=== PATIENT | male | born 1935 | race Hispanic/Latino ===

== ENCOUNTER 2020-10-04 18:33 | Observation (INO) | payer MEDICARE, OTHER ==
[~2020-10-04] VITALS: Ht 165.1 cm; Wt 59.0 kg
[~2020-10-04 18:33] MED LIST: CEFADROXIL500 MG PO; PLAVIX75 MG PO; TYLENOL WITH C1 EACH PO
[2020-10-04 19:08] LABS: BASOPHILS # (AUTO) 0.1 (0.0-0.1); BASOPHILS % 1.1 % (0.0-1.0); EOSINOPHILS # (AUTO) 0.3 (0.0-0.4); EOSINOPHILS % 3.3 % (0.0-6.0); HEMATOCRIT 38.1 % (38.2-49.6); HEMOGLOBIN 12.1 g/dL (14.0-18.0); LYMPHOCYTES # (AUTO) 1.7 (1.0-3.2); LYMPHOCYTES % 23.3 % (18.0-39.1); MEAN CORPUSCULAR HEMOGLOBIN 25.6 pg (28-32); MEAN CORPUSCULAR HGB CONC 31.8 g/dL (31-35); MEAN CORPUSCULAR VOLUME 80.7 fL (81-99); MONOCYTES # (AUTO) 0.7 (0.2-0.8); MONOCYTES % 9.6 % (4.4-11.3); NEUTROPHILS # (AUTO) 4.7 (2.1-6.9); NEUTROPHILS % 62.4 % (38.7-80.0); PLATELET COUNT 225 x10e3/uL (140-360); RED BLOOD COUNT 4.72 x10e6/uL (4.3-5.7); RED CELL DISTRIBUTION WIDTH 14.6 % (11.7-14.4)
[2020-10-04 19:21] LABS: INR 0.9; PROTHROMBIN TIME 12.7 seconds (11.9-14.5)
[2020-10-04 19:24] LABS: ALBUMIN 3.7 g/dL (3.5-5.0); ALBUMIN/GLOBULIN RATIO 1.1 (0.8-2.0); ANION GAP 14.5 mmol/L (8-16); CALCIUM 8.9 mg/dL (8.4-10.2); CREATININE, SERUM 1.56 mg/dL (0.72-1.25); POTASSIUM 3.5 mmol/L (3.5-5.1)
[2020-10-04 19:30] LABS: CREATINE KINASE MB 1.2 ng/mL (0-5.0)
[2020-10-04] MEDS ORDERED: METOPROLOL TARTRATE INJ 1 MG/ML VIAL IV ONE (20:30)
[2020-10-04] MEDS ORDERED: METOPROLOL TARTRATE INJ 1 MG/ML VIAL ONE (20:44)
[2020-10-04] MEDS ORDERED: HYDRALAZINE HCL 20 MG/ML VIAL IV PRN (21:00)
[2020-10-04] MEDS ORDERED: SODIUM CHLORIDE FLUSH 10 ML SYR INJ PRN (21:00)
[2020-10-04 23:00] VITALS: BP 193/77
[2020-10-05] VITALS (9 sets, daily range): BP systolic 133–160; BP diastolic 58–86
[2020-10-05 05:27] LABS: BASOPHILS # (AUTO) 0.1 (0.0-0.1); BASOPHILS % 0.8 % (0.0-1.0); EOSINOPHILS # (AUTO) 0.3 (0.0-0.4); EOSINOPHILS % 3.6 % (0.0-6.0); HEMATOCRIT 37.2 % (38.2-49.6); HEMOGLOBIN 12.2 g/dL (14.0-18.0); LYMPHOCYTES # (AUTO) 1.6 (1.0-3.2); LYMPHOCYTES % 19.4 % (18.0-39.1); MEAN CORPUSCULAR HGB CONC 32.8 g/dL (31-35); MEAN CORPUSCULAR VOLUME 79.3 fL (81-99); MONOCYTES # (AUTO) 0.8 (0.2-0.8); MONOCYTES % 9.6 % (4.4-11.3); NEUTROPHILS # (AUTO) 5.5 (2.1-6.9); NEUTROPHILS % 66.4 % (38.7-80.0); PLATELET COUNT 216 x10e3/uL (140-360); RED BLOOD COUNT 4.69 x10e6/uL (4.3-5.7); RED CELL DISTRIBUTION WIDTH 14.6 % (11.7-14.4)
[2020-10-05 05:54] LABS: CREATINE KINASE MB 1.4 ng/mL (0-5.0)
[2020-10-05 06:32] LABS: ALBUMIN 3.5 g/dL (3.5-5.0); ALBUMIN/GLOBULIN RATIO 1.2 (0.8-2.0); ANION GAP 12.3 mmol/L (8-16); CALCIUM 8.6 mg/dL (8.4-10.2); CREATININE, SERUM 1.26 mg/dL (0.72-1.25); POTASSIUM 3.3 mmol/L (3.5-5.1)
[2020-10-05] MEDS ORDERED: ACETAMINOPHEN 325 MG TAB PO PRN (06:45)
[2020-10-05] MEDS ORDERED: ONDANSETRON HCL INJ 2MG/ML 2ML 2 MG/ML VIAL IV PRN (06:45)
[2020-10-05] MEDS ORDERED: DOCUSATE SODIUM 100 MG CAP PO PRN (06:45)
[2020-10-05] MEDS ORDERED: ZOLPIDEM TARTRATE 5 MG TAB PO PRN (06:45)
[2020-10-05 07:12] LABS: CHOL/HDL RATIO 3.4 (3.9-4.7)
[2020-10-05] MEDS: CLOPIDOGREL BISULFATE 75 MG TAB PO SCH (09:45)
[2020-10-05] MEDS: ASPIRIN 81 MG ENTERIC COATED PO SCH (09:45)
[2020-10-05 12:22] LABS: CREATINE KINASE MB 1.5 ng/mL (0-5.0)
[2020-10-05] MEDS ORDERED: ENOXAPARIN SOD INJ 40 MG/0.4 ML SYR SC SCH (17:00)
[2020-10-05] MEDS ORDERED: ATORVASTATIN 20 MG TAB PO SCH (21:00)
[2020-10-05] MEDS: METOPROLOL TARTRATE 25 MG TAB PO SCH (21:18)
[2020-10-06] MEDS: METOPROLOL TARTRATE 25 MG TAB PO SCH (05:30)
[2020-10-06 05:33] VITALS: BP 137/67
[2020-10-06 05:56] LABS: BASOPHILS # (AUTO) 0.1 (0.0-0.1); BASOPHILS % 1.1 % (0.0-1.0); EOSINOPHILS # (AUTO) 0.3 (0.0-0.4); EOSINOPHILS % 3.6 % (0.0-6.0); HEMATOCRIT 37.2 % (38.2-49.6); LYMPHOCYTES # (AUTO) 1.6 (1.0-3.2); LYMPHOCYTES % 19.7 % (18.0-39.1); MEAN CORPUSCULAR HEMOGLOBIN 25.9 pg (28-32); MEAN CORPUSCULAR HGB CONC 32.3 g/dL (31-35); MEAN CORPUSCULAR VOLUME 80.2 fL (81-99); MONOCYTES # (AUTO) 0.9 (0.2-0.8); MONOCYTES % 10.5 % (4.4-11.3); NEUTROPHILS # (AUTO) 5.3 (2.1-6.9); PLATELET COUNT 176 x10e3/uL (140-360); RED BLOOD COUNT 4.64 x10e6/uL (4.3-5.7); RED CELL DISTRIBUTION WIDTH 14.8 % (11.7-14.4)
[2020-10-06 06:23] LABS: ANION GAP 15.2 mmol/L (8-16); CREATININE, SERUM 1.47 mg/dL (0.72-1.25); POTASSIUM 4.2 mmol/L (3.5-5.1)
[2020-10-06 08:13] VITALS: BP 165/59
[2020-10-06] MEDS: ASPIRIN 81 MG ENTERIC COATED PO SCH (08:36)
[2020-10-06] MEDS: CLOPIDOGREL BISULFATE 75 MG TAB PO SCH (08:36)
[2020-10-06] MEDS ORDERED: ASPIRIN EC81 MG PO (08:47)
[2020-10-06] MEDS ORDERED: LOSARTAN POTASS25 MG PO (08:47)
[2020-10-06] MEDS ORDERED: LOPRESSOR25 MG PO (08:47)
[2020-10-06] MEDS ORDERED: LIPITOR20 MG PO (08:47)
[2020-10-06 09:14] VITALS: BP 165/59
== END 2020-10-06 10:17 | disposition home or self-care (01) ==
LOC: ER 18:57 → ERHOLD 21:14 → MED/SURG3 22:44
PROVIDERS: ADMIT Internal Medicine; ATTEND Internal Medicine
DX: G81.91 Hemiplegia, unspecified affecting right dominant side (principal); I12.9 Hypertensive chronic kidney disease with stage 1 through stage 4 chronic kidney disease, or unspecified chronic kidney disease; N18.30 Chronic kidney disease, stage 3 unspecified; N17.9 Acute kidney failure, unspecified; I63.89 Other cerebral infarction; E87.6 Hypokalemia; I16.1 Hypertensive emergency; R00.1 Bradycardia, unspecified; F17.200 Nicotine dependence, unspecified, uncomplicated; Z95.820 Peripheral vascular angioplasty status with implants and grafts; Z20.822 Contact with and (suspected) exposure to COVID-19
CPT/HCPCS: 36415 ×3; 70450; 70544; 70547; 70551; 71045; 80048; 80053 ×2; 80061; 82550 ×2; 82553 ×2; 84484 ×2; 85025 ×3; 85610; 85730; 93005; 93306; 97139; 97161; 99251; 99284; G0378 ×3; J0360; J1650; U0002

== ENCOUNTER 2020-10-23 08:32 | Observation (INO) | payer MEDICARE ==
[~2020-10-23] VITALS: Ht 165.1 cm; Wt 59.0 kg
[~2020-10-23 08:32] MED LIST changes: +ASPIRIN EC81 MG PO; +LIPITOR20 MG PO; +LOPRESSOR25 MG PO; +LOSARTAN POTASS25 MG PO
[2020-10-23 09:03] LABS: BASOPHILS # (AUTO) 0.1 (0.0-0.1); BASOPHILS % 0.9 % (0.0-1.0); EOSINOPHILS # (AUTO) 0.3 (0.0-0.4); EOSINOPHILS % 3.3 % (0.0-6.0); HEMATOCRIT 37.9 % (38.2-49.6); HEMOGLOBIN 12.2 g/dL (14.0-18.0); LYMPHOCYTES # (AUTO) 1.7 (1.0-3.2); LYMPHOCYTES % 22.5 % (18.0-39.1); MEAN CORPUSCULAR HGB CONC 32.2 g/dL (31-35); MEAN CORPUSCULAR VOLUME 80.8 fL (81-99); MONOCYTES # (AUTO) 0.6 (0.2-0.8); MONOCYTES % 7.6 % (4.4-11.3); NEUTROPHILS # (AUTO) 4.9 (2.1-6.9); NEUTROPHILS % 65.4 % (38.7-80.0); PLATELET COUNT 207 x10e3/uL (140-360); RED BLOOD COUNT 4.69 x10e6/uL (4.3-5.7); RED CELL DISTRIBUTION WIDTH 14.8 % (11.7-14.4)
[2020-10-23 09:07] LABS: CLARITY,URINE CLEAR (CLEAR); COLOR,URINE YELLOW (YELLOW); KETONES,URINE NEGATIVE (NEGATIVE); LEUKOCYTE ESTERASE ,URINE NEGATIVE (NEGATIVE); NITRITE,URINE NEGATIVE (NEGATIVE); PROTEIN,URINE DIPSTICK NEGATIVE (NEGATIVE); URINE UROBILINOGEN 1 mg/dL (0.2 - 1)
[2020-10-23 09:13] LABS: INR 0.89; PROTHROMBIN TIME 12.6 seconds (11.9-14.5)
[2020-10-23 09:24] LABS: ALBUMIN 3.9 g/dL (3.5-5.0); ALBUMIN/GLOBULIN RATIO 1.3 (0.8-2.0); ANION GAP 11.6 mmol/L (8-16); CALCIUM 9.3 mg/dL (8.4-10.2); CREATININE, SERUM 1.3 mg/dL (0.72-1.25); MAGNESIUM 1.8 MG/DL (1.3-2.1); POTASSIUM 3.6 mmol/L (3.5-5.1)
[2020-10-23 09:30] LABS: BACTERIA,URINE FEW /HPF; EPITHELIAL CELLS,URINE RARE /LPF; WBC,URINE (MAN) 0-5 /HPF (0-5)
[2020-10-23 09:43] LABS: CREATINE KINASE MB 0.9 ng/mL (0-5.0); THYROID STIMULATING HORMONE 2.724 uIU/mL (0.350-4.940)
[2020-10-23] MEDS ORDERED: ONDANSETRON HCL INJ 2MG/ML 2ML 2 MG/ML VIAL IV PRN (11:30)
[2020-10-23 13:00] VITALS: BP 184/77
[2020-10-23] MEDS: METOPROLOL TARTRATE 25 MG TAB PO SCH (14:18)
[2020-10-23 17:30] VITALS: BP 159/62
[2020-10-23 19:26] LABS: CREATINE KINASE MB 0.8 ng/mL (0-5.0)
[2020-10-23 20:27] VITALS: BP 160/62
[2020-10-23] MEDS ORDERED: ATORVASTATIN 20 MG TAB PO SCH ×2 (21:00)
[2020-10-24] VITALS (8 sets, daily range): BP systolic 140–178; BP diastolic 54–72
[2020-10-24] MEDS: HYDRALAZINE HCL 20 MG/ML VIAL IV PRN ×2 (00:51→16:47)
[2020-10-24] MEDS: METOPROLOL TARTRATE 25 MG TAB PO SCH ×2 (00:52→14:00)
[2020-10-24 05:56] LABS: BASOPHILS # (AUTO) 0.1 (0.0-0.1); BASOPHILS % 1.2 % (0.0-1.0); EOSINOPHILS # (AUTO) 0.3 (0.0-0.4); EOSINOPHILS % 3.8 % (0.0-6.0); HEMATOCRIT 34.7 % (38.2-49.6); HEMOGLOBIN 11.4 g/dL (14.0-18.0); LYMPHOCYTES # (AUTO) 1.8 (1.0-3.2); LYMPHOCYTES % 23.8 % (18.0-39.1); MEAN CORPUSCULAR HEMOGLOBIN 26.5 pg (28-32); MEAN CORPUSCULAR HGB CONC 32.9 g/dL (31-35); MEAN CORPUSCULAR VOLUME 80.5 fL (81-99); MONOCYTES # (AUTO) 0.7 (0.2-0.8); MONOCYTES % 8.5 % (4.4-11.3); NEUTROPHILS # (AUTO) 4.8 (2.1-6.9); NEUTROPHILS % 62.4 % (38.7-80.0); PLATELET COUNT 181 x10e3/uL (140-360); RED BLOOD COUNT 4.31 x10e6/uL (4.3-5.7); RED CELL DISTRIBUTION WIDTH 14.8 % (11.7-14.4)
[2020-10-24 06:17] LABS: CREATINE KINASE MB 0.8 ng/mL (0-5.0)
[2020-10-24 06:29] LABS: ALBUMIN 3.3 g/dL (3.5-5.0); ALBUMIN/GLOBULIN RATIO 1.1 (0.8-2.0); ANION GAP 13.3 mmol/L (8-16); CHOL/HDL RATIO 2.6 (3.9-4.7); CREATININE, SERUM 1.21 mg/dL (0.72-1.25); POTASSIUM 3.3 mmol/L (3.5-5.1)
[2020-10-24] MEDS ORDERED: LOSARTAN POTASSIUM 25 MG TAB PO SCH (09:00)
[2020-10-24] MEDS ORDERED: ASPIRIN 81 MG ENTERIC COATED PO SCH (09:00)
[2020-10-24] MEDS ORDERED: CLOPIDOGREL BISULFATE 75 MG TAB PO SCH (09:00)
[2020-10-24] MEDS: CLOPIDOGREL BISULFATE 75 MG TAB PO SCH (09:45)
[2020-10-24] MEDS: ASPIRIN 81 MG ENTERIC COATED PO SCH (09:45)
[2020-10-25] VITALS (8 sets, daily range): BP systolic 142–174; BP diastolic 60–65
[2020-10-25] MEDS: METOPROLOL TARTRATE 25 MG TAB PO SCH ×2 (01:45→13:55)
[2020-10-25] MEDS: CLOPIDOGREL BISULFATE 75 MG TAB PO SCH (08:23)
[2020-10-25] MEDS: ASPIRIN 81 MG ENTERIC COATED PO SCH (08:24)
[2020-10-25] MEDS ORDERED: LOSARTAN POTASSIUM 25 MG TAB PO SCH (09:00)
[2020-10-25] MEDS ORDERED: ONDANSETRON HCL 4 MG ORAL DISINTEGRATING TAB PO PRN (09:45)
[2020-10-25] MEDS ORDERED: POTASSIUM CHLORIDE 20 MEQ TAB CR PO ONE (09:45)
[2020-10-25] MEDS: HYDRALAZINE HCL 20 MG/ML VIAL IV PRN (13:01)
== END 2020-10-25 16:00 | disposition home or self-care (01) ==
LOC: ER 09:01 → ERHOLD 11:40 → MED/SURG2 13:08
PROVIDERS: ADMIT Internal Medicine; ATTEND Internal Medicine
DX: I69.393 Ataxia following cerebral infarction (principal); R27.0 Ataxia, unspecified; E78.5 Hyperlipidemia, unspecified; E03.9 Hypothyroidism, unspecified; Z96.652 Presence of left artificial knee joint; J44.9 Chronic obstructive pulmonary disease, unspecified; Z20.822 Contact with and (suspected) exposure to COVID-19
CPT/HCPCS: 36415 ×2; 70450; 70551; 71045; 80053 ×2; 80061; 81001; 82550 ×2; 82553 ×2; 83735; 84443; 84484 ×2; 85025 ×2; 85610; 85730; 87086; 93005; 97116; 97161; 97530; 99284; G0378 ×3; J0360 ×2; U0002

== ENCOUNTER 2021-02-10 16:23 | Observation (INO) | payer MEDICARE, OTHER ==
[~2021-02-10] VITALS: Ht 165.1 cm; Wt 59.0 kg
[2021-02-10] MEDS ORDERED: ASPIRIN 81 MG CHEW TAB PO ONE ×2 (17:15→18:45)
[2021-02-10 17:39] LABS: BASOPHILS % 0.4 % (0.0-1.0); EOSINOPHILS # (AUTO) 0.3 (0.0-0.4); EOSINOPHILS % 4.4 % (0.0-6.0); HEMATOCRIT 35.3 % (38.2-49.6); HEMOGLOBIN 11.6 g/dL (14.0-18.0); LYMPHOCYTES # (AUTO) 1.2 (1.0-3.2); LYMPHOCYTES % 17.4 % (18.0-39.1); MEAN CORPUSCULAR HEMOGLOBIN 27.8 pg (28-32); MEAN CORPUSCULAR HGB CONC 32.9 g/dL (31-35); MEAN CORPUSCULAR VOLUME 84.4 fL (81-99); MONOCYTES % 14.1 % (4.4-11.3); NEUTROPHILS # (AUTO) 4.4 (2.1-6.9); NEUTROPHILS % 63.3 % (38.7-80.0); PLATELET COUNT 158 x10e3/uL (140-360); RED BLOOD COUNT 4.18 x10e6/uL (4.3-5.7); RED CELL DISTRIBUTION WIDTH 15.1 % (11.7-14.4)
[2021-02-10] MEDS ORDERED: HYDROCODONE/APAP 5MG-325MG TAB PO ONE (17:45)
[2021-02-10 17:58] LABS: ALBUMIN 3.6 g/dL (3.5-5.0); ALBUMIN/GLOBULIN RATIO 1.2 (0.8-2.0); ANION GAP 14.3 mmol/L (8-16); CALCIUM 9.5 mg/dL (8.4-10.2); CREATININE, SERUM 1.8 mg/dL (0.72-1.25); POTASSIUM 3.3 mmol/L (3.5-5.1)
[2021-02-10 23:45] VITALS: BP 184/72
[2021-02-11] VITALS (8 sets, daily range): BP systolic 143–184; BP diastolic 53–80
[2021-02-11] MEDS: HYDRALAZINE HCL 20 MG/ML VIAL IV PRN ×3 (00:50→15:57)
[2021-02-11 03:40] LABS: CREATINE KINASE MB 1.1 ng/mL (0-5.0)
[2021-02-11 04:50] LABS: BASOPHILS % 0.6 % (0.0-1.0); EOSINOPHILS # (AUTO) 0.4 (0.0-0.4); EOSINOPHILS % 6.1 % (0.0-6.0); HEMATOCRIT 34.9 % (38.2-49.6); HEMOGLOBIN 11.7 g/dL (14.0-18.0); LYMPHOCYTES # (AUTO) 1.3 (1.0-3.2); LYMPHOCYTES % 19.7 % (18.0-39.1); MEAN CORPUSCULAR HEMOGLOBIN 28.1 pg (28-32); MEAN CORPUSCULAR HGB CONC 33.5 g/dL (31-35); MEAN CORPUSCULAR VOLUME 83.7 fL (81-99); MONOCYTES # (AUTO) 0.8 (0.2-0.8); MONOCYTES % 12.6 % (4.4-11.3); NEUTROPHILS # (AUTO) 4.1 (2.1-6.9); NEUTROPHILS % 60.7 % (38.7-80.0); PLATELET COUNT 150 x10e3/uL (140-360); RED BLOOD COUNT 4.17 x10e6/uL (4.3-5.7); RED CELL DISTRIBUTION WIDTH 14.8 % (11.7-14.4)
[2021-02-11 05:20] LABS: CREATINE KINASE MB 1.2 ng/mL (0-5.0)
[2021-02-11 05:51] LABS: ALBUMIN 3.4 g/dL (3.5-5.0); ALBUMIN/GLOBULIN RATIO 1.1 (0.8-2.0); ANION GAP 14.1 mmol/L (8-16); CALCIUM 8.8 mg/dL (8.4-10.2); CREATININE, SERUM 1.48 mg/dL (0.72-1.25); POTASSIUM 3.1 mmol/L (3.5-5.1)
[2021-02-11] MEDS: LOSARTAN POTASSIUM 25 MG TAB PO SCH (10:22)
[2021-02-11] MEDS: ASPIRIN 81 MG ENTERIC COATED PO SCH (10:22)
[2021-02-11] MEDS: LIDOCAINE 4% PATCH TP SCH (10:22)
[2021-02-11] MEDS: METOPROLOL TARTRATE 25 MG TAB PO SCH ×2 (10:22→22:30)
[2021-02-11] MEDS: CLOPIDOGREL BISULFATE 75 MG TAB PO SCH (10:22)
[2021-02-11] MEDS ORDERED: POTASSIUM CHLORIDE 20 MEQ TAB CR PO ONE (10:30)
[2021-02-11] MEDS: VALACYCLOVIR HCL 500 MG TAB PO SCH ×2 (15:38→23:00)
[2021-02-11 16:48] LABS: ANION GAP 15.9 mmol/L (8-16); CALCIUM 8.9 mg/dL (8.4-10.2); CREATININE, SERUM 1.31 mg/dL (0.72-1.25); POTASSIUM 3.9 mmol/L (3.5-5.1)
[2021-02-11] MEDS ORDERED: ATORVASTATIN 20 MG TAB PO SCH (21:00)
[2021-02-11] MEDS: ATORVASTATIN 40 MG TAB PO SCH (22:23)
[2021-02-11] MEDS ORDERED: VALACYCLOVIR HCL 500 MG TAB ONE (23:54)
[2021-02-12 01:23] VITALS: BP 183/61
[2021-02-12] MEDS ORDERED: VALACYCLOVIR HCL 500 MG TAB ONE (01:34)
[2021-02-12] MEDS: HYDRALAZINE HCL 20 MG/ML VIAL IV PRN (02:09)
[2021-02-12 04:47] VITALS: BP 126/51
[2021-02-12] MEDS: VALACYCLOVIR HCL 500 MG TAB PO SCH ×3 (06:44→21:10)
[2021-02-12 08:37] VITALS: BP 150/66
[2021-02-12] MEDS ORDERED: ASPIRIN 81 MG ENTERIC COATED PO SCH (09:00)
[2021-02-12] MEDS: ASPIRIN 81 MG ENTERIC COATED PO SCH (09:28)
[2021-02-12] MEDS: LOSARTAN POTASSIUM 25 MG TAB PO SCH (09:29)
[2021-02-12] MEDS: METOPROLOL TARTRATE 25 MG TAB PO SCH ×2 (09:30→21:10)
[2021-02-12] MEDS: LIDOCAINE 4% PATCH TP SCH (09:30)
[2021-02-12] MEDS: CLOPIDOGREL BISULFATE 75 MG TAB PO SCH (09:30)
[2021-02-12 09:33] VITALS: BP 150/66
[2021-02-12] MEDS ORDERED: ASPIRIN EC81 MG PO (14:38)
[2021-02-12] MEDS ORDERED: VALTREX500 MG PO (14:38)
[2021-02-12] MEDS: ATORVASTATIN 40 MG TAB PO SCH (21:00)
[2021-02-12 21:05] VITALS: BP 176/73
[2021-02-12 21:44] VITALS: BP 176/73
[2021-02-13] MEDS: HYDRALAZINE HCL 20 MG/ML VIAL IV PRN (01:13)
[2021-02-13] MEDS ORDERED: ACETAMINOPHEN 325 MG TAB PO PRN (03:15)
[2021-02-13] MEDS: VALACYCLOVIR HCL 500 MG TAB PO SCH ×2 (05:20→14:15)
[2021-02-13 06:16] LABS: BASOPHILS # (AUTO) 0.1 (0.0-0.1); BASOPHILS % 0.8 % (0.0-1.0); EOSINOPHILS # (AUTO) 0.2 (0.0-0.4); EOSINOPHILS % 2.6 % (0.0-6.0); HEMATOCRIT 34.7 % (38.2-49.6); HEMOGLOBIN 11.7 g/dL (14.0-18.0); LYMPHOCYTES # (AUTO) 1.7 (1.0-3.2); LYMPHOCYTES % 19.7 % (18.0-39.1); MEAN CORPUSCULAR HEMOGLOBIN 28.3 pg (28-32); MEAN CORPUSCULAR HGB CONC 33.7 g/dL (31-35); MEAN CORPUSCULAR VOLUME 83.8 fL (81-99); MONOCYTES # (AUTO) 0.8 (0.2-0.8); MONOCYTES % 8.5 % (4.4-11.3); NEUTROPHILS % 68.1 % (38.7-80.0); PLATELET COUNT 168 x10e3/uL (140-360); RED BLOOD COUNT 4.14 x10e6/uL (4.3-5.7); RED CELL DISTRIBUTION WIDTH 14.8 % (11.7-14.4)
[2021-02-13 06:28] LABS: ANION GAP 14.3 mmol/L (8-16); CALCIUM 8.6 mg/dL (8.4-10.2); CREATININE, SERUM 1.58 mg/dL (0.72-1.25); POTASSIUM 3.3 mmol/L (3.5-5.1)
[2021-02-13] MEDS: METOPROLOL TARTRATE 25 MG TAB PO SCH (07:33)
[2021-02-13] MEDS ORDERED: POTASSIUM CHLORIDE 20 MEQ TAB CR PO STA (08:08)
[2021-02-13] MEDS: CLOPIDOGREL BISULFATE 75 MG TAB PO SCH (08:50)
[2021-02-13] MEDS: ASPIRIN 81 MG ENTERIC COATED PO SCH (08:50)
[2021-02-13] MEDS: LOSARTAN POTASSIUM 25 MG TAB PO SCH (08:50)
[2021-02-13] MEDS: LIDOCAINE 4% PATCH TP SCH (08:50)
[2021-02-13 10:07] VITALS: BP 144/58
[2021-02-13] MEDS ORDERED: LIPITOR20 MG PO (12:43)
[2021-02-13] MEDS ORDERED: NEURONTIN100 MG PO (12:43)
[2021-02-13] MEDS ORDERED: HYDROCODONE/APAP 5MG-325MG TAB PO ONE (13:30)
[2021-02-13] MEDS ORDERED: GABAPENTIN 100 MG CAP PO ONE (13:30)
== END 2021-02-13 14:32 | disposition home or self-care (01) ==
LOC: ER 17:20 → ERHOLD 18:43 → INTOOBSV 18:43 → IMCU 23:53 → MED/SURG3 02-11 16:11
PROVIDERS: ADMIT Internal Medicine; ATTEND Internal Medicine
DX: G45.9 Transient cerebral ischemic attack, unspecified (principal); I69.351 Hemiplegia and hemiparesis following cerebral infarction affecting right dominant side; E78.5 Hyperlipidemia, unspecified; J44.9 Chronic obstructive pulmonary disease, unspecified; B02.9 Zoster without complications; N18.32 Chronic kidney disease, stage 3b; I12.9 Hypertensive chronic kidney disease with stage 1 through stage 4 chronic kidney disease, or unspecified chronic kidney disease; I69.393 Ataxia following cerebral infarction; I69.320 Aphasia following cerebral infarction; I69.328 Other speech and language deficits following cerebral infarction; Z96.652 Presence of left artificial knee joint; Z90.49 Acquired absence of other specified parts of digestive tract; Z20.822 Contact with and (suspected) exposure to COVID-19
CPT/HCPCS: 36415 ×2; 70450; 70551; 80048 ×2; 80053 ×2; 82550 ×2; 82553 ×2; 83735; 84484 ×2; 85025 ×3; 92526; 92610; 93005; 93306; 93880; 97116; 97161; 97530; 99284; G0378 ×4; J0360 ×3; U0002

== ENCOUNTER 2021-03-24 10:09 | Outpatient (RCR) | payer MEDICARE ==
[~2021-03-24 10:09] MED LIST changes: +NEURONTIN100 MG PO; +VALTREX500 MG PO
== END 2021-03-26 ==
LOC: PT 10:09
PROVIDERS: ATTEND Internal Medicine
DX: I69.351 Hemiplegia and hemiparesis following cerebral infarction affecting right dominant side (principal); M62.81 Muscle weakness (generalized); R53.81 Other malaise; R26.2 Difficulty in walking, not elsewhere classified

== ENCOUNTER 2021-04-01 13:00 | Outpatient (RCR) | payer MEDICARE | END 2021-04-26 | LOC: OT 13:00 | PROVIDERS: ATTEND Internal Medicine | DX: I69.352 Hemiplegia and hemiparesis following cerebral infarction affecting left dominant side (principal); M62.81 Muscle weakness (generalized); R53.81 Other malaise; R26.2 Difficulty in walking, not elsewhere classified | CPT/HCPCS: 97139 ==

== ENCOUNTER 2021-05-25 14:58 | Outpatient (RCR) | payer MEDICARE | END 2021-05-26 | LOC: PT 14:58 | PROVIDERS: ATTEND Internal Medicine | DX: I69.351 Hemiplegia and hemiparesis following cerebral infarction affecting right dominant side (principal); M62.81 Muscle weakness (generalized); R53.81 Other malaise; R26.2 Difficulty in walking, not elsewhere classified ==

== ENCOUNTER 2021-06-15 14:53 | Outpatient (RCR) | payer MEDICARE | END 2021-06-26 | LOC: PT 14:53 | PROVIDERS: ATTEND Internal Medicine | DX: I69.351 Hemiplegia and hemiparesis following cerebral infarction affecting right dominant side (principal); M62.81 Muscle weakness (generalized); R53.81 Other malaise; R26.2 Difficulty in walking, not elsewhere classified ==